=== PATIENT | male | born 1950 | race Caucasian/White ===

== ENCOUNTER 2024-11-11 14:25 | Emergency (ER) | payer BC, SELFPAY ==
[2024-11-11 14:40] VITALS: BP 156/89
--- NOTE | 2024-11-11 14:42 | ED.MUSCINJ ---
HPI-Injury
<Ra Link PA-C - Last Filed: 11/11/24 14:43>
General
Chief Complaint: Musculo-Skeletal Complaint
Time Seen by Provider: 11/11/24 15:11
<Patti Churchill MD - Last Filed: 11/11/24 17:27>
General
Source: patient
Exam Limitations: none
Nursing documentation reviewed up to this point in time: agreed with
History of Present Illness-Injury
Is this injury a work related problem?: No
Is pt an associate of [facility]?: No
Initial Injury comments:
The patient is a 74-year-old man who reports that he slipped on snow. He did not hit his head. He reports that he twisted his right ankle on the way down. He denies any back pain, neck pain, no hip pain. Patient reports swelling on the outer
aspect of his right ankle. He reports he is able to bear weight.
ED Provider Triage
<Ra Link PA-C - Last Filed: 11/11/24 14:43>
-
Patient seen by provider in Triage?: Seen in Triage
74-year-old male on Xarelto slipped twisting his right ankle on the ice. No head strike. He denies headache or neck pain. Only complains of right ankle pain.
X-rays right ankle ordered through triage. He looks well vital signs are stable.
Patient seen by medical provider through triage but does warrant further assessment
Past History
<Ra Link PA-C - Last Filed: 11/11/24 14:43>
Past History
ED Past Medical History: None
ED Past Surgical History: None
<Patti Churchill MD - Last Filed: 11/11/24 17:27>
Past History
ED Past Medical History: Arrthythmia and HTN
ED Past Surgical History: Orthopedic
Social History
Tobacco: Other
Alcohol: Other
Drug: None
Personal:
Living: with family
Employment: Other
Family History
Family History: Other
Review of Systems
<Patti Churchill MD - Last Filed: 11/11/24 17:27>
Review of Systems
Allergies reviewed?: Yes
All Other Systems: ROS reviewed and negative except as documented in HPI and ROS
Constitutional: Reports no symptoms
EENT: Reports no symptoms
Respiratory: Reports no symptoms
Cardiac: Reports no symptoms
ABD/GI: Reports no symptoms
: Reports no symptoms
Musculoskeletal: Reports joint pain and joint swelling
Skin: Reports no symptoms
Neurological: Reports no symptoms
Endocrine: Reports no symptoms
Hematologic/Lymphatic: Reports no symptoms
Psychiatric: Reports no symptoms
Phy Exam
<Patti Churchill MD - Last Filed: 11/11/24 17:27>
Physical Exam
Physical Exam:
Physical Exam
General: no apparent distress, not acutely ill. Smiling, conversational
Neck: supple. Nontender
Heart: No chest wall tenderness
Lungs: no acute respiratory distress. clear bilaterally
Abdomen: Soft, nontender, no CVA tenderness
Neuro: alert and oriented. no focal neurological deficits
Skin: no rash
Psychiatric: well kept. interactive and cooperative
Extremities: Mild soft tissue swelling of lateral and medial right ankle. Strong pulses and excellent sensation in right foot. Nontender pelvis and hips. Upper extremities are nontender
Injury Course
<Ra Link PA-C - Last Filed: 11/11/24 14:43>
Orders/Labs/Results
Orders:
Orders
11/11/24 14:26
Ankle, Right 3 view CR [CR Ankle - Right Min 3 Views *] Urgent
Comment:
Reason For Exam: fall
11/11/24 16:20
Air Splint Right-Treatment ONCE
Comment: R ankle please
<Patti Churchill MD - Last Filed: 11/11/24 17:27>
Orders/Labs/Results
Orders:
Orders
11/11/24 14:26
Ankle, Right 3 view CR [CR Ankle - Right Min 3 Views *] Urgent
Comment:
Reason For Exam: fall
11/11/24 16:20
Air Splint Right-Treatment ONCE
Comment: R ankle please
<Patti Churchill MD - Last Filed: 11/11/24 17:27>
MDM/Problems Addressed
Differential Diagnosis Includes:
Right ankle sprain, right ankle fracture, C-spine injury
MDM/Problems Addressed:
Patient presents with right ankle pain and swelling after a fall
Chronic conditions affecting care:
Given patient is on anticoagulation due to history of A-fib, he is at increased risk of bleeding due to trauma
Acute Exacerbation and/or Progression of Chronic Illness:
Patient is acutely hypertensive, however, it is mild and there is no sign of stroke or heart failure
Acute Exacerbation and/or Progression of Chronic Illness: HTN
<Patti Churchill MD - Last Filed: 11/11/24 17:27>
*Radiology
Radiology exam reviewed: preliminary read by ED provider (Right ankle film reviewed by me. No acute fracture) and radiology read reviewed
*Pulse Oximetry
Patient hypoxic: no
*EKG
Interpreted by ED Provider?: NA
*Construction Administrative Assistant Interpretation
Rate: Construction Administrative Assistant- N/A
*Critical Care Note
Total Time (30-74mins, 75-104mins- exclusive of procedures): Not Applicable
Data Reviewed
Source: patient and spouse
<Patti Churchill MD - Last Filed: 11/11/24 17:27>
Patient Management
Social determinants of health affecting care: Living situation and Strong social support
ED Attending Note
<Ra Link PA-C - Last Filed: 11/11/24 14:43>
-
Portions of this chart may have been created with voice recognition software.� Occasional wrong word or��sound alike� substitutions may have occurred due to the inherent limitations of voice recognition software.
Discharge Plan
Departure
Patient Disposition: Home (Routine Discharge)
Date of Disposition: 11/11/24
Time of Disposition: 16:23
Patient with high blood pressure during this ER visit?: Yes
Condition: Good
Covid-19: Not Applicable
Discharge Problem:
Right ankle sprain
Instructions: Sprain (DC), BLOOD PRESSURE
Referrals:
PRIVATE,PHYSICIAN [Family Provider] -
Activity Restrictions/Additional Instructions:
Take 1000 mg of Tylenol every 4-6 hours for pain. Make sure to elevate your right foot and ankle and apply an ice pack several times a day to control swelling. If you are still having pain in 5 to 7 days, please follow-up with your primary care
doctor
Interventions
Interventions:
*Risk Screen - Suicide Last Done: 11/11/24 14:40
*General Assessment Last Done: 11/11/24 14:40
*Neglect/Abuse Screening Last Done: 11/11/24 15:30
ED- Fall Risk Assessment Last Done: 11/11/24 15:25
*ED COVID-19 Vaccine History Last Done: 11/11/24 14:40
*Nursing Disposition Last Done: 11/11/24 16:35
ED-Musculoskeletal Assessment Last Done: 11/11/24 15:25
Discharge Date and Time
Discharge Date/Time: 11/11/24 16:35
Print Language: SERBIAN
== END 2024-11-11 16:35 | disposition home or self-care (01) ==
LOC: EMR 14:25
PROVIDERS: EMERGENCY PHYSICIAN Emergency Medicine
DX: S93.401A Sprain of unspecified ligament of right ankle, initial encounter (principal); X50.1XXA Overexertion from prolonged static or awkward postures, initial encounter; I10 Essential (primary) hypertension; I48.91 Unspecified atrial fibrillation; Z79.01 Long term (current) use of anticoagulants
CPT/HCPCS: 29515; 99283; 73610